=== PATIENT | male | born 1970 | race Caucasian/White ===

== ENCOUNTER → 2018-02-08 | Outpatient (CLI) | payer OTHER ==
[2018-02-08 09:52] LABS: ANION GAP 10 (5-13); BLOOD UREA NITROGEN 11 mg/dl (7-20); CALCIUM 9.5 mg/dl (8.4-10.2); CARBON DIOXIDE 27 mmol/L (21-31); CHLORIDE 105 mmol/L (97-110); CREATININE 0.64 mg/dl (0.61-1.24); Estimated GFR > 60 mL/min (>60); GLUCOSE 109 mg/dl (70-220); POTASSIUM 4.3 mmol/L (3.5-5.1); SODIUM 142 mmol/L (135-144)
[2018-02-08] MEDS: METOPROLOL 100 MG TAB (10:55)
[2018-02-08] MEDS: METOPROLOL 50 MG TAB PO (11:24)
[2018-02-08] MEDS: METOPROLOL 5 MG INJ (11:34)
[2018-02-08] MEDS: IOHEXOL 100 ML ×2 (12:50→13:17)
[2018-02-08] MEDS: SOD CHLORIDE 0.9% 100 ML (13:17)
== END | disposition home or self-care (01) ==
LOC: LAB 08:35
DX: R94.39 Abnormal result of other cardiovascular function study (principal)
CPT/HCPCS: 75571; 75574; 80048